=== PATIENT | male | born 1975 | race Caucasian/White ===

== ENCOUNTER 2018-04-02 00:33 | Day surgery (SDC) | payer OTHER ==
[~2018-04-02 00:33] MED LIST: Cleocin HCl300 MG PO; IBUP800; OXYC5; Percocet 5-3251 EACH PO; ZYRTEC10 M1 PO
== END 2018-04-02 14:20 | disposition home or self-care (01) ==
LOC: ATC 00:33
DX: A53.9 Syphilis, unspecified (principal); A64 Unspecified sexually transmitted disease
CPT/HCPCS: 96372; J0561

== ENCOUNTER 2018-04-05 00:23 | Day surgery (SDC) | payer OTHER | END 2018-04-05 14:00 | disposition home or self-care (01) | LOC: ATC 00:23 | DX: A64 Unspecified sexually transmitted disease (principal); A53.9 Syphilis, unspecified | CPT/HCPCS: 96372; J0561 ==

== ENCOUNTER 2018-04-09 00:03 | Day surgery (SDC) | payer OTHER | END 2018-04-09 13:58 | disposition home or self-care (01) | LOC: ATC 00:03 | DX: A64 Unspecified sexually transmitted disease (principal); A53.9 Syphilis, unspecified | CPT/HCPCS: 96372; J0561 ==